=== PATIENT | female | born 1950 | race Asian ===

== ENCOUNTER → 2021-12-31 | Outpatient (CLI) | payer OTHER | LOC: RAD 13:43 | PROVIDERS: ATTEND Family Medicine | DX: J40 Bronchitis, not specified as acute or chronic (principal); Z86.16 Personal history of COVID-19 | CPT/HCPCS: 71046 ==

== ENCOUNTER → 2022-12-27 | Outpatient (CLI) | payer OTHER | LOC: CT 10:49 | PROVIDERS: ATTEND Family Medicine | DX: S00.93XA Contusion of unspecified part of head, initial encounter (principal); S60.031A Contusion of right middle finger without damage to nail, initial encounter; W19.XXXA Unspecified fall, initial encounter | CPT/HCPCS: 70450 ==

== ENCOUNTER → 2022-12-29 | Outpatient (CLI) | payer OTHER | LOC: RAD 08:21 | PROVIDERS: ATTEND Family Medicine | DX: S60.031A Contusion of right middle finger without damage to nail, initial encounter (principal) ==